=== PATIENT | female | born 1940 | race Hispanic/Latino ===

== ENCOUNTER 2018-06-19 02:58 | Observation (INO) | payer MEDICARE ==
[2018-06-19] MEDS ORDERED: ASPIRIN PO ONE (03:05)
--- NOTE | 2018-06-19 03:39 | XRay Report ---
PROCEDURE: XR CHEST 1V AP TECHNIQUE: Chest radiograph single view. HISTORY: Chest Pain COMPARISONS: None . FINDINGS: Heart: Normal. Mediastinum/Vessels: Normal. Lungs/Pleural space: Normal. Bony thorax: No acute osseous abnormality. Life support devices: None. IMPRESSION: No acute cardiopulmonary abnormality. This document is electronically signed by Benito Mcmillan MD., Jun 19 2018 03:37:10 AM ET
[2018-06-19 03:42] LABS: Basophils % (Auto) 0.6 % (0.0-1.8); Eosinophils # (Auto) 0.1 K/mm3 (0.0-0.4); Eosinophils % (Auto) 1.9 % (0.0-4.3); Hematocrit 41.3 % (30.3-42.9); Hemoglobin 13.6 gm/dl (10.1-14.3); Lymphocytes % (Auto) 16.9 % (13.4-35.0); Mean Corpuscular HGB Conc 33 % (30-34); Mean Corpuscular Volume 92 fl (79-97); Monocytes # (Auto) 0.4 K/mm3 (0.0-0.8); Monocytes % (Auto) 6.4 % (0.0-7.3); Platelet Count 180 K/mm3 (140-440); Red Blood Count 4.47 M/mm3 (3.65-5.03); Red Cell Distribution Width 14.6 % (13.2-15.2)
[2018-06-19 03:51] LABS: INR 0.95 (0.87-1.13)
[2018-06-19 03:52] LABS: Partial Thromboplastin Time 27.1 Sec. (24.2-36.6)
[2018-06-19 04:03] LABS: BUN/Creatinine Ratio 14; Blood Urea Nitrogen 14 mg/dL (7-17); Calcium 8.8 mg/dL (8.4-10.2); Hemolysis Index 12
--- NOTE | 2018-06-19 07:16 | Cat Scan Report ---
PROCEDURE: CT HEAD/BRAIN WO CON TECHNIQUE: Routine axial imaging was obtained of the brain without IV contrast. HISTORY: neuro deficits <6hrs or sx present upon awakening COMPARISONS: None FINDINGS: There is age-related atrophy. There is diminished attenuation of the periventricular white matter com patible with chronic ischemic white matter disease changes. There is no evidence of acute stroke or h emorrhage. The ventricular system is appropriate in size and is symmetric. The visualized sinuses are clear. The calvarium appears intact. IMPRESSION: Age-related volume loss with chronic ischemic white matter disease changes. No acute stroke or hemorr ann-marie.. This document is electronically signed by Ziggy Pérez MD., Jun 19 2018 05:48:43 AM ET
--- NOTE | 2018-06-19 07:17 | Emergency Department Report ---
ED General Adult HPI - General Chief complaint: Chest Pain Stated complaint: CHEST PAIN Time Seen by Provider: 06/19/18 07:13 Source: patient, family, RN notes reviewed Mode of arrival: Ambulatory Limitations: Other (the patient is a poor historian) - History of Present Illness Initial comments: This is an 78-year-old female. The patient is not known to this provider previously. The patient's primary care doctor is Dr. Daly. The history is obtained from the patient and her daughter. The patient has a history of "thyroid", hypertension, high cholesterol. The patient at this point in time does not carry a formal diagnosis of dementia. The patient may have had a history of stroke. She is not certain. The patient's daughter is not certain. Patient presents to this emergency room with complaint of chest pain and dizziness. The patient indicates the chest pain is central and left-sided. She indicates does not radiate anywhere. She describes it as a "gas" sensation The patient is not able to describe exacerbating or relieving factors. The patient denies vomiting, diaphoresis, exertional shortness of breath. The patient describes dizziness. She cannot describe what the dizziness feels like. The patient denies loss of consciousness. She denies lightheadedness. She denies vertiginous symptoms. She has chronic visual disturbance in her right eye. The patient denies new or different visual disturbance. She denies pain with chewing or swallowing food. The patient lives by herself. Her daughter comes by to visit her a few times a week. No aspirin within the past week. The patient's daughter states that the patient has endorsed shortness of breath, and sweating. The patient's daughter states that the patient has been forgetful. The patient's daughter denies DVT, pulmonary embolus risk factors. The patient's daughter's concern that the patient may have had a "stroke." She thinks that the patient may have had a stroke in the distant past, but she is not certain. As far as the daughter is aware, no MRI confirmed strokes have been identified. 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 Hyperthyroid - Surgical History Past Surgical History?: Yes Additional Surgical History: right ear - Social History Smoking Status: Never Smoker Substance Use Type: None ED Physical Exam - General Limitations: Other (patient is a poor historian.) General appearance: alert (the patient is alert to name and location. She does not know the year.), in no apparent distress - Head Head exam: Present: atraumatic, normocephalic - Eye Eye exam: Present: normal appearance, EOMI, other (visual acuity intact to finger counting, color perception, reading at a close distance). Absent: nystagmus - ENT ENT exam: Present: normal exam, normal orophraynx, mucous membranes moist, melissa l external ear exam - Neck Neck exam: Present: normal inspection, full ROM. Absent: tenderness, meningismus - Respiratory Respiratory exam: Present: normal lung sounds bilaterally. Absent: respiratory distress - Cardiovascular Cardiovascular Exam: Present: normal rhythm, bradycardia, normal heart sounds. Absent: tachycardia, irregular rhythm, systolic murmur, diastolic murmur, rubs, gallop - GI/Abdominal GI/Abdominal exam: Present: soft. Absent: distended, tenderness, guarding, rebound, rigid, pulsatile mass - Extremities Exam Extremities exam: Present: normal inspection, full ROM, other (2+ pulses noted in the bilateral upper, lower extremities. Compartments soft. No long bony tenderness. The pelvis is stable.). Absent: pedal edema, joint swelling, calf tenderness - Back Exam Back exam: Present: normal inspection, full ROM. Absent: tenderness, CVA tenderness (R), paraspinal tenderness, vertebral tenderness - Neurological Exam Neurological exam: Present: alert (alert to name and location. There is no pass pointing. There is no pronator drift. There is normal [id number].), abnormal gait (the patient walks with a broad-based unsteady gait), other (Extraocular movements intact. Tongue midline. No facial droop. Facial sensation intact to light touch in the V1, V2, V3 distribution bilaterally. 5 and 5 strength in 4 extremities.. Sensation is intact to light touch in 4 extremities.). Absent: motor sensory deficit - Psychiatric Psychiatric exam: Present: anxious - Skin Skin exam: Present: warm, dry, intact, normal color. Absent: rash ED Course Vital Signs 06/19/18 06/19/18 06/19/18 03:01 03:33 03:41 Temperature 97.5 F L Pulse Rate 56 L Respiratory 18 Rate Blood Pressure 188/81 162/109 Blood Pressure [Right] O2 Sat by Pulse 99 100 99 Oximetry 06/19/18 06/19/18 06/19/18 03:51 04:19 04:21 Temperature Pulse Rate 59 L Respiratory 14 Rate Blood Pressure 179/75 170/71 Blood Pressure [Right] O2 Sat by Pulse 96 91 97 Oximetry 06/19/18 06/19/18 06/19/18 04:31 04:41 04:51 Temperature Pulse Rate Respiratory Rate Blood Pressure 136/73 136/73 179/75 Blood Pressure [Right] O2 Sat by Pulse 100 98 94 Oximetry 06/19/18 06/19/18 06/19/18 05:01 05:11 05:21 Temperature Pulse Rate Respiratory Rate Blood Pressure 179/75 157/62 136/73 Blood Pressure [Right] O2 Sat by Pulse 99 99 99 Oximetry 06/19/18 06/19/18 06/19/18 05:31 05:41 05:51 Temperature Pulse Rate Respiratory Rate Blood Pressure 136/73 136/73 136/73 Blood Pressure [Right] O2 Sat by Pulse 99 98 100 Oximetry 06/19/18 06/19/18 06/19/18 06:01 06:11 07:01 Temperature Pulse Rate Respiratory Rate Blood Pressure 136/73 162/60 173/77 Blood Pressure [Right] O2 Sat by Pulse 97 98 Oximetry 06/19/18 06/19/18 06/19/18 07:15 07:21 07:31 Temperature Pulse Rate 52 L 54 L Respiratory 18 17 Rate Blood Pressure 173/77 173/77 173/77 Blood Pressure [Right] O2 Sat by Pulse 99 99 96 Oximetry 06/19/18 06/19/18 06/19/18 07:41 07:50 08:01 Temperature Pulse Rate 62 71 53 L Respiratory 18 16 16 Rate Blood Pressure 162/60 173/77 173/77 Blood Pressure [Right] O2 Sat by Pulse 99 93 99 Oximetry 06/19/18 06/19/18 06/19/18 08:11 08:21 08:30 Temperature Pulse Rate 48 L 47 L 57 L Respiratory 15 10 L 17 Rate Blood Pressure 173/77 173/77 Blood Pressure [Right] O2 Sat by Pulse 99 99 99 Oximetry 06/19/18 06/19/18 06/19/18 08:41 08:51 09:01 Temperature Pulse Rate Respiratory Rate Blood Pressure Blood Pressure [Right] O2 Sat by Pulse 92 98 97 Oximetry 06/19/18 06/19/18 06/19/18 09:11 09:21 09:24 Temperature 98.2 F Pulse Rate 57 L 67 60 Respiratory 15 22 16 Rate Blood Pressure Blood Pressure 150/90 [Right] O2 Sat by Pulse 89 99 100 Oximetry 06/19/18 06/19/18 06/19/18 09:31 09:41 09:51 Temperature Pulse Rate 76 Respiratory 22 Rate Blood Pressure 150/112 150/112 150/112 Blood Pressure [Right] O2 Sat by Pulse 97 91 99 Oximetry - Reevaluation(s) Reevaluation #1: 06/19/18 08:31 Differential diagnosis, including not limited to: GERD, gastritis, hiatal hernia, acute coronary syndrome, pulmonary embolus, dementia, migraine headache, tension headache, cluster headache, electrolyte derangement, urinary tract infection Assessment and plan: 78-year-old female, likely with undiagnosed dementia, with inconsistent history of headache, dizziness and chest pain. Objectively s peaking, troponin negative 1, not tachycardic, not hypoxic, no pulmonary embolus or DVT risk factors, walks with a broad-based gait, likely deconditioning and dementia. Given her advanced age, vascular risk factors, patient is moderate risk by the heart score, and therefore, urgent/expedient cardiac risk stratification is typically recommended. Patient endorses shellfish intolerance, but as far as she or the family knows, no true contrast allergy to intravenous contrast. We will obtain a CT scan of her chest. Noncontrast CT scan of the brain was negative. The patient has a nonfocal neuro logic examination. I suspect undiagnosed dementia. The patient has an NIH score of 1, symptoms present for greater than 24 hours, therefore not a TPA candidate, therefore a candidate for emergent endovascular imaging. We'll replete her potassium. I did have an extensive discussion with the patient's daughter. The risks of hospitalization, including DVT, delirium, slip and fall, hospital-acquired diarrhea or reviewed with the daughter, who verbalized understanding, and gave verbal permission for hospitalization. The Hospital physician, Dr. Martino will admit the patient to the medical service. Reevaluation #2: 06/19/18 08:38 There is no temporal tenderness. There is no jaw claudication. No new visual deficits. Temporal arteritis unlikely. Intracranial CT essentially unremarkable. No neck pain or neck stiffness. No endorsement of sudden or thunderclap headache. Reevaluation #3: 06/19/18 15:40 CT scan of the chest is negative for acute disease ED Medical Decision Making - Lab Data Result diagrams: 06/19/18 03:17 06/19/18 03:17 Vital Signs 06/19/18 03:01 Temperature 97.5 F L Pulse Rate 53 L Respiratory 18 Rate Blood Pressure 188/81 O2 Sat by Pulse 99 Oximetry Lab Results 06/19/18 06/19/18 06/19/18 Range/Units 03:17 03:17 03:20 WBC 5.9 (4.5-11.0) K/mm3 RBC 4.47 (3.65-5.03) M/mm3 Hgb 13.6 (10.1-14.3) gm/dl Hct 41.3 (30.3-42.9) % MCV 92 (79-97) fl MCH 30 (28-32) pg MCHC 33 (30-34) % RDW 14.6 (13.2-15.2) % Plt Count 180 (140-440) K/mm3 Lymph % (Auto) 16.9 (13.4-35.0) % Moca % (Auto) 6.4 (0.0-7.3) % Eos % (Auto) 1.9 (0.0-4.3) % Baso % (Auto) 0.6 (0.0-1.8) % Lymph # 1.0 L (1.2-5.4) K/mm3 Moca # 0.4 (0.0-0.8) K/mm3 Eos # 0.1 (0.0-0.4) K/mm3 Baso # 0.0 (0.0-0.1) K/mm3 Seg Neutrophils % 74.2 H (40.0-70.0) % Seg Neutrophils # 4.4 (1.8-7.7) K/mm3 PT 13.3 (12.2-14.9) Sec. INR 0.95 (0.87-1.13) APTT 27.1 (24.2-36.6) Sec. Thrombin Time (15.1-19.6) Sec. D-Dimer (0-234) ng/mlDDU Sodium 140 (137-145) mmol/L Potassium 3.4 L (3.6-5.0) mmol/L Chloride 102.3 (98-107) mmol/L Carbon Dioxide 23 (22-30) mmol/L Anion Gap 18 mmol/L BUN 14 (7-17) mg/dL Creatinine 1.0 (0.7-1.2) mg/dL Estimated GFR 53 ml/min BUN/Creatinine Ratio 14 % Glucose 101 H (65-100) mg/dL POC Glucose (70-105) Calcium 8.8 (8.4-10.2) mg/dL Troponin T < 0.010 (0.00-0.029) ng/mL Urine Color (Yellow) Urine Turbidity (Clear) Urine pH (5.0-7.0) Ur Specific [place] (1.003-1.030) Urine Protein (Negative) mg/dL Urine Glucose (UA) (Negative) mg/dL Urine Ketones (Negative) mg/dL Urine Blood (Negative) Urine Nitrite (Negative) Urine Bilirubin (Negative) Urine Urobilinogen (<2.0) mg/dL Ur Leukocyte Esterase (Negative) Urine WBC (Auto) (0.0-6.0) /HPF Urine RBC (Auto) (0.0-6.0) /HPF Urine Bacteria (Auto) (Negative) /HPF 06/19/18 06/19/18 06/19/18 Range/Units 03:20 04:34 07:10 WBC (4.5-11.0) K/mm3 RBC (3.65-5.03) M/mm3 Hgb (10.1-14.3) gm/dl Hct (30.3-42.9) % MCV (79-97) fl MCH (28-32) pg MCHC (30-34) % RDW (13.2-15.2) % Plt Count (140-440) K/mm3 Lymph % (Auto) (13.4-35.0) % Moca % (Auto) (0.0-7.3) % Eos % (Auto) (0.0-4.3) % Baso % (Auto) (0.0-1.8) % Lymph # (1.2-5.4) K/mm3 Moca # (0.0-0.8) K/mm3 Eos # (0.0-0.4) K/mm3 Baso # (0.0-0.1) K/mm3 Seg Neutrophils % (40.0-70.0) % Seg Neutrophils # (1.8-7.7) K/mm3 PT (12.2-14.9) Sec. INR (0.87-1.13) APTT (24.2-36.6) Sec. Thrombin Time 15.9 (15.1-19.6) Sec. D-Dimer (0-234) ng/mlDDU Sodium (137-145) mmol/L Potassium (3.6-5.0) mmol/L Chloride (98-107) mmol/L Carbon Dioxide (22-30) mmol/L Anion Gap mmol/L BUN (7-17) mg/dL Creatinine (0.7-1.2) mg/dL Estimated GFR ml/min BUN/Creatinine Ratio % Glucose (65-100) mg/dL POC Glucose 89 (70-105) Calcium (8.4-10.2) mg/dL Troponin T (0.00-0.029) ng/mL Urine Color Straw (Yellow) Urine Turbidity Clear (Clear) Urine pH 7.0 (5.0-7.0) Ur Specific [place] 1.005 (1.003-1.030) Urine Protein <15 mg/dl (Negative) mg/dL Urine Glucose (UA) Neg (Negative) mg/dL Urine Ketones Neg (Negative) mg/dL Urine Blood Sm (Negative) Urine Nitrite Neg (Negative) Urine Bilirubin Neg (Negative) Urine Urobilinogen < 2.0 (<2.0) mg/dL Ur Leukocyte Esterase Neg (Negative) Urine WBC (Auto) 2.0 (0.0-6.0) /HPF Urine RBC (Auto) 6.0 (0.0-6.0) /HPF Urine Bacteria (Auto) 1+ (Negative) /HPF 06/19/18 Range/Units 07:20 WBC (4.5-11.0) K/mm3 RBC (3.65-5.03) M/mm3 Hgb (10.1-14.3) gm/dl Hct (30.3-42.9) % MCV (79-97) fl MCH (28-32) pg MCHC (30-34) % RDW (13.2-15.2) % Plt Count (140-440) K/mm3 Lymph % (Auto) (13.4-35.0) % Moca % (Auto) (0.0-7.3) % Eos % (Auto) (0.0-4.3) % Baso % (Auto) (0.0-1.8) % Lymph # (1.2-5.4) K/mm3 Moca # (0.0-0.8) K/mm3 Eos # (0.0-0.4) K/mm3 Baso # (0.0-0.1) K/mm3 Seg Neutrophils % (40.0-70.0) % Seg Neutrophils # (1.8-7.7) K/mm3 PT (12.2-14.9) Sec. INR (0.87-1.13) APTT (24.2-36.6) Sec. Thrombin Time (15.1-19.6) Sec. D-Dimer 527.74 H (0-234) ng/mlDDU Sodium (137-145) mmol/L Potassium (3.6-5.0) mmol/L Chloride (98-107) mmol/L Carbon Dioxide (22-30) mmol/L Anion Gap mmol/L BUN (7-17) mg/dL Creatinine (0.7-1.2) mg/dL Estimated GFR ml/min BUN/Creatinine Ratio % Glucose (65-100) mg/dL POC Glucose (70-105) Calcium (8.4-10.2) mg/dL Troponin T (0.00-0.029) ng/mL Urine Color (Yellow) Urine Turbidity (Clear) Urine pH (5.0-7.0) Ur Specific [place] (1.003-1.030) Urine Protein (Negative) mg/dL Urine Glucose (UA) (Negative) mg/dL Urine Ketones (Negative) mg/dL Urine Blood (Negative) Urine Nitrite (Negative) Urine Bilirubin (Negative) Urine Urobilinogen (<2.0) mg/dL Ur Leukocyte Esterase (Negative) Urine WBC (Auto) (0.0-6.0) /HPF Urine RBC (Auto) (0.0-6.0) /HPF Urine Bacteria (Auto) (Negative) /HPF - EKG Data -: EKG Interpreted by Me EKG shows normal: sinus rhythm Rate: bradycardia - EKG Data When compared to previous EKG there are: previous EKG unavailable 06/19/18 08:35 This is a bradycardic rhythm, 49 bpm, normal axis, QTC prolonged, atrial con tractions, abnormal EKG, not consistent with ST elevation myocardial infarction, there is no prior for comparison. - Radiology Data Radiology results: report reviewed, image reviewed X-ray the chest is negative for acute disease. Noncontrast CT scan of the brain is negative for acute disease. Critical care attestation.: If time is entered above; I have spent that time in minutes in the direct care of this critically ill patient, excluding procedure time. ED Disposition Clinical Impression: History of chest pain, History of dizziness, History of headache Disposition: OP ADMIT IP TO THIS HOSP Is pt being admited?: Yes Does the pt Need Aspirin: Yes Condition: Fair - Assessment Assessment Interval: Baseline - Level of Consciousness 1a. Level of Consciousness: alert/keenly responsive - LOC Questions 1b. LOC Questions: answers 1 question correctly - LOC Command 1c. LOC Commands: performs tasks correctly - Best Gaze 2. Best Gaze: normal - Visual 3. Visual: no visual loss - Facial Palsy 4. Facial Palsy: normal symmetrical movement - Motor Arm 5a. Motor Arm Left: no drift 5b. Motor Arm Right: no drift - Motor Leg 6a. Motor Leg Left: no drift 6b. Motor Leg Right: no drift - Limb Ataxia 7. Limb Ataxia: absent - Sensory 8. Sensory: normal - Best Language 9. Best Language: no aphasia - Dysarthria 10. Dysarthria: normal - Extinction and Inattention 11. Extinction/Inattention: no abnormality - Scoring Total Score: 1 Stroke Severity: Minor Stroke
[2018-06-19 08:20] LABS: Bacteria,Urine 1+ /HPF (Negative); Bilirubin,Urine NEG (Negative); Blood,Urine SM (Negative); Color,Urine Straw (Yellow); Protein,Urine <15 mg/dL mg/dL (Negative); Urobilinogen,Urine < 2.0 mg/dL (<2.0)
[2018-06-19] MEDS ORDERED: SOLU-Medrol IV ONE (08:34)
[2018-06-19] MEDS ORDERED: K-DUR PO ONE ×2 (08:34→15:00)
[2018-06-19] MEDS ORDERED: BENADRYL IV ONE (08:34)
[2018-06-19] MEDS ORDERED: PEPCID IV ONE (08:34)
[2018-06-19] MEDS ORDERED: NACL 0.9% 250ML 250 ML IV ONE (08:34)
--- NOTE | 2018-06-19 10:36 | Cat Scan Report ---
CTA chest: PE protocol. History: Elevated d-dimer. Chest pain. Findings: No evidence of aortic aneurysm or pulmonary embolism. Atherosclerotic aorta. No mediastinal mass or adenopathy. No pleural or pericardial effusion. No acute consolidation or discrete nodularity. Impression: No evidence of pulmonary embolism. No acute lung changes.
[2018-06-19] MEDS ORDERED: NACL 0.9% 250ML 250 ML ONE (10:49)
--- NOTE | 2018-06-19 14:39 | History and Physical Report ---
History of Present Illness Date of examination: 06/19/18 Date of admission: 06/19/18 08:37 Chief complaint: Chest pains History of present illness: Patient is a 78 yo woman who lives home alone with a history of hypertension, dyslipidemia, thyroid disorder and stroke with right eye blindness who presents to [facility] ED with left sided, nonradiating intermittent mild to moderate gas like chest pains without aggravating or relieving factors associated with dizziness that started last night. per Chart daughter is concerned about Dementia and mother living alone. Most of the history is from daughter. The patient denies vomiting, diaphoresis, exertional shortness of breath. The patient denies loss of consciousness. She denies lightheadedness. She denies vertiginous symptoms. She has chronic visual disturbance in her right eye. The patient denies new or different visual disturbance. The patient's daughter states that the patient has shortness of breath, and sweating. The patient's daughter states that the patient has been forgetful. The patient's daughter denies DVT, pulmonary embolus risk factors. The patient's daughter's concern that the patient may h ave had a "stroke." She thinks that the patient may have had a stroke in the distant past, but she is not certain. As far as the daughter is aware, no MRI confirmed strokes have been identified. The patient's primary care doctor is Dr. Kevin Daly. PMH: as hpi PSH: She denies initially then she mentions brain surgery, eye surgery SH: She denies tob/etoh/illicit drug use, lives home alone FH: She denies any heart attacks ROS: Constitutional: denies: fever ENT: denies: throat or neck pain Respiratory: denies: cough, +shortness of breath Cardiovascular: + chest pain Endocrine: denies unexplained weight loss or gain Gastrointestinal: denies: abdominal pain, nausea Genitourinary: denies: dysuria Rectal: denies no incontinence, no bleeding, no itching, no discharge Musculoskeletal: denies swelling, myaglia, muscle weakness Skin: denies: rash Neurological: + headache Hematological/Lymphatic: denies: easy bleeding or easy bruising Allergic/Immunologic: no urticaria, no allergic rhinitis, no anaphylaxis Psych: denies sadness or hopelessness, SI/HI Medications and Allergies Allergies Allergy/AdvReac Type Severity Reaction Status Date / Time iodine Allergy Angioedema Verified 06/19/18 09:25 shellfish derived Allergy Angioedema Verified 06/19/18 09:25 Active Meds: Active Medications Pneumococcal Polyvalent Vaccine (Pneumovax 23) 0.5 ml IM .ONCE ONE Stop: 06/20/18 12:01 Exam - Physical Exam Narrative exam: Gen: thin frail, WDWN, NAD, Awake, Alert, Orientated x 2, missed year, HEENT: NCAT, EOMI, PERRL, OP Clear Neck: supple, no adenopathy, no thyromegaly, no JVD CVS/Heart: RRR, normal S1S2, pulses present bilaterally Chest/Lungs: CTA B, Symmetrical chest expansion, good air entry bilaterally GI/Abdomen: soft, NTND, good bowel sounds, no guarding or rebound /Bladder: no suprapubic tenderness, no CVA or paraspinal tenderness Extermity/Skin: no c/c/e, no obvious rash MSK: FROM x 4 Neuro: CN 2-12 grossly intact, no new focal deficits, abnormal gait Psych: calm, poor 5 minute, 3 object recall, unable to count backwards by 7 - Constitutional Vitals: Temp Pulse Resp BP Pulse Ox 97.6 F 49 L 16 164/66 98 06/19/18 12:14 06/19/18 12:14 06/19/18 12:14 06/19/18 12:14 06/19/18 12:14 Results - Labs CBC & Chem 7: 06/19/18 03:17 06/19/18 03:17 Labs: Abnormal lab results 06/19/18 06/19/18 06/19/18 Range/Units 03:17 03:17 07:20 Lymph # 1.0 L (1.2-5.4) K/mm3 Seg Neutrophils % 74.2 H (40.0-70.0) % D-Dimer 527.74 H (0-234) ng/mlDDU Potassium 3.4 L (3.6-5.0) mmol/L Glucose 101 H (65-100) mg/dL Assessment and Plan Patient is a 78 yo woman who lives home alone with a history of hypertension, dyslipidemia, thyroid disorder and stroke with right eye blindness who presents to [facility] ED with chest pains and dizziness with AMS. * CTA chest Impression: No evidence of pulmonary embolism. No acute lung changes. * CT head wo contrast IMPRESSION: Age-related volume loss with chronic ischemic white matter disease changes. No acute stroke or hemorrhage.. * pCXR IMPRESSION: No acute cardiopulmonary abnormality. -Chest pains with negative troponin x 2, appears atypical: get stress test -Dizziness and abnormal gait: get MRI brain, use stroke protocol -Thyroid disorder: check thyroid function -Acute encephalopathy vs Dementia: consult Neurology home rec not entered full code DVT/GI ppx
[2018-06-19] MEDS ORDERED: ZOFRAN IV PRN (14:50)
[2018-06-19] MEDS ORDERED: DULCOLAX PR PRN (14:50)
[2018-06-19] MEDS ORDERED: SENOKOT PO PRN (14:50)
[2018-06-19] MEDS ORDERED: TYLENOL PO PRN (14:50)
[2018-06-19] MEDS ORDERED: SODIUM CHLORIDE FLUSH SYRINGE 10 ML IV PRN (14:50)
--- NOTE | 2018-06-19 17:51 | Vascular Lab Report ---
PROCEDURE: VL CAROTID DUPLEX BILAT TECHNIQUE: Ultrasound of the bilateral carotid arteries. Reported ICA Stenosis % per the NASCET crite mike. HISTORY: stroke COMPARISONS: None FINDINGS: PLAQUE DISTRIBUTION: Mild echogenic nonshadowing plaque is present in the right proximal internal car otid artery. Moderate echogenic shadowing calcified plaque is present in the proximal left internal c arotid artery with moderate decrease in diameter. VELOCITIES: RIGHT ICA peak systolic velocity (cm/sec): 85 ICA end diastolic velocity (cm/sec): 14 CCA peak systolic velocity (cm/sec): 75 ECA peak systolic velocity (cm/sec): 63 ICA/CCA systolic velocity ratio (cm/sec): 1.13 Right vertebral: Antegrade ICA STENOSIS ESTIMATION: < 50 % LEFT ICA peak systolic velocity (cm/sec): 100 ICA end diastolic velocity (cm/sec): 14 CCA peak systolic velocity (cm/sec): 81 ECA peak systolic velocity (cm/sec): 107 ICA/CCA systolic velocity ratio (cm/sec): 1.23 Left vertebral: Antegrade ICA STENOSIS ESTIMATION: < 50 % IMPRESSION: No clinically significant areas of stenosis noted bilaterally. ICA Stenosis % per the NASCET criteria is < 50 % on the right and < 50 % on the left. This document is electronically signed by Erendira Oshea MD., Jun 19 2018 05:49:15 PM ET
--- NOTE | 2018-06-19 20:19 | Magnetic Resonance Report ---
PROCEDURE: MR BRAIN WO CON HISTORY: CVA--SLURRED SPEECH--HEADACHES FINDINGS: MRI of the brain was performed using sagittal T1, axial diffusion, axial T2, axial FLAIR, c oronal flair and axial T1-weighted images. Comparison is made to the head CT of June 19, 2018. These images demonstrate that there is a complete corpus callosum. There is no Chiari malformation. Diffusion-weighted images demonstrate no acute transcortical or acute lacunar infarct. There are mild chronic-appearing small vessel ischemic white matter changes in subcortical and perive ntricular white matter. No suspect focal brain lesion is seen. There are normal flow voids in the vertebral arteries, basilar artery and both internal carotid arter ies. The mastoid air cells and middle ears appear clear. There is no evidence of acute sinusitis. IMPRESSION: No acute transcortical or acute lacunar infarct This document is electronically signed by Horacio Parker MD., Jun 19 2018 08:17:59 PM ET
--- NOTE | 2018-06-19 20:21 | Magnetic Resonance Report ---
PROCEDURE: MR MRA/MRV HEAD WO CON HISTORY: CVA--SLURRED SPEECH--HEADACHES FINDINGS: MRA of the brain was performed using [id number] angiography. Data was reformatted into multiple injections. In the posterior circulation both vertebral arteries are patent. The right vertebral artery is small, likely a developmental basis. The basilar artery is patent. Both posterior cerebral arteries are susi ntified and appear widely patent. In the anterior circulation the internal carotid, middle cerebral and anterior cerebral arteries appe ar widely patent. No aneurysm is seen. IMPRESSION: The intracranial arterial vasculature is widely patent This document is electronically signed by Horacio Parker MD., Jun 19 2018 08:19:33 PM ET
[2018-06-19] MEDS ORDERED: ATIVAN IV ONE (22:11)
[2018-06-20 06:25] LABS: Hematocrit 42.7 % (30.3-42.9); Hemoglobin 14.1 gm/dl (10.1-14.3); Mean Corpuscular HGB Conc 33 % (30-34); Mean Corpuscular Volume 92 fl (79-97); Platelet Count 188 K/mm3 (140-440); Red Blood Count 4.65 M/mm3 (3.65-5.03); Red Cell Distribution Width 14.4 % (13.2-15.2)
[2018-06-20 06:54] LABS: Alanine Aminotransferase 14 units/L (7-56); Albumin 4.4 g/dL (3.9-5); BUN/Creatinine Ratio 16; Blood Urea Nitrogen 14 mg/dL (7-17); Calcium 9.5 mg/dL (8.4-10.2); Hemolysis Index 8
[2018-06-20] MEDS ORDERED: ASPIRIN PO SCH (10:00)
[2018-06-20] MEDS ORDERED: PEPCID PO SCH (10:00)
[2018-06-20 11:40] VITALS: BP 147/78
[2018-06-20] MEDS ORDERED: PNEUMOVAX 23 IM ONE (12:00)
[2018-06-20] MEDS ORDERED: LEXISCAN IV ONE (12:07)
--- NOTE | 2018-06-20 13:16 | Consultation ---
History of Present Illness - Reason for Consult Consult date: 06/20/18 Reason for consult: Initial Psychiatric Evaluation - Chief Complaint Chief complaint: Chest pains - History of Present Psychiatric Illness Patient is an 78 yo female who lives home alone with a history of hypertension, dyslipidemia, thyroid disorder and stroke with right eye blindness who presents to [facility] ED with chest pains and dizziness with AMS. Reason for psychiatric consult reason unknown. Today patient is anxious and irritable. Daughter is at bedside. Both daughter and patient are irritable. Hesitant to have a complete psychiatric evaluation. Patient reports that she has no PPHx. Patient endorses increase worry, sleep fluctuations, easily irritable. Patient responses to questions are inappropriate. She denies SI/HI's, A/VH's, and del usions. Patient unable to recall 0/3 (lamp, umbrella, and telephone) in 5 minutes. Per collateral, daughter states patient has been very forgetful. She states 3 years ago patient has a stroke and since then patient has been forgetful. She no longer drive and cook. She reports appropriate appetite and sleep. Per daughter patient mood is frequently sad with increase anxiety/irritability. In the past, patient has taken Klonopin but intermittently. Current Psychiatric Medications: Klonopin PRN Past Psychiatric History: No previous psychiatric diagnosis; no previous inpatient psychiatric hospitalization; no outpatient psychiatrist; no previous suicide attempts. Past Medication Trials: Patient denies. History of Drug/Alcohol Abuse: Patient denies. History of Trauma/Abuse: Patient denies sexual, physical, and mental abuse. No hx of trauma. Family History of Psychiatric Illness and Substance Abuse: Patient denies. Medications and Allergies Allergies Allergy/AdvReac Type Severity Reaction Status Date / Time iodine Allergy Angioedema Verified 06/19/18 09:25 shellfish derived Allergy Angioedema Verified 06/19/18 09:25 Home Medications Medication Instructions Recorded Confirmed Last Taken Type Levothyroxine [Synthroid] 50 mcg PO QAM 06/19/18 06/19/18 Unknown History Losartan [Cozaar] 50 mg PO QDAY 06/19/18 06/19/18 Unknown History Simvastatin [Zocor] 40 mg PO DAILY 06/19/18 06/19/18 Unknown History Active Meds: Active Medications Acetaminophen (Tylenol) 650 mg PO Q4H PRN PRN Reason: Pain, Mild (1-3) Last Admin: 06/20/18 09:15 Dose: 650 mg Documented by: Aspirin (Aspirin) 325 mg PO QDAY [facility] Last Admin: 06/20/18 09:15 Dose: 325 mg Documented by: Atorvastatin Calcium (Lipitor) 40 mg PO QHS [facility] Last Admin: 06/19/18 21:53 Dose: 40 mg Documented by: Bisacodyl (Dulcolax) 10 mg ND QDAY PRN PRN Reason: Constipation Famotidine (Pepcid) 20 mg PO BID [facility] Last Admin: 06/20/18 09:15 Dose: 20 mg Documented by: Ondansetron HCl (Zofran) 4 mg IV Q8H PRN PRN Reason: Nausea And Vomiting Senna (Senokot) 8.6 mg PO Q12H PRN PRN Reason: Laxative Effect Sodium Chloride (Sodium Chloride Flush Syringe 10 Ml) 10 ml IV PRN PRN PRN Reason: LINE FLUSH Mental Status Exam - Vital signs Last Vital Signs Temp 97.2 F L 06/20/18 08:18 Pulse 75 06/20/18 10:00 Resp 18 06/20/18 10:00 BP 147/78 06/20/18 11:18 Pulse Ox 98 06/20/18 10:00 - Exam Narrative exam: Mental Status Exam: Appearance: anxious irritable Behavior: regular eye contact, confused Speech: regular rate and tone Mood: "pretty good" Affect: congruent to mood Thought Process: confused, disorganized Thought Content: denies SI/HI's, AVH's, and delusions Motor Activity: ambulatory Cognition: A/O x 1 Insight: variable Judgment:variable Mini mental state examination: (MMSE) What is the appoximate time? 1:30 - look at clock What day if week is it? " I don't know " What is the date today? " I don't know" What is the month? " May, June" What is the year ? " I forgot already." Temporal orientation: 1 Where are we now?" I don't know" What is the place? " I don't know" In what district/county are we or what is the address here? " I don't know, [place]" In which town are we? " [place], [place]" In which state are we? " [place] Spatial Orientation: 2 Repeat the following: CAR, VASE, BRICK Registration - 3 Attention and calculation: patient unable to follow directions 100-7 0 Remote memory: unable to recall lamp, umbrella, telephone 0 Naming 2 objects: watch and pen - patient able to show provider 1 REPEAT "NO IFS AND BUTS"- unable to repeat phrase 0 Stage command: "Take this piece of paper with your right hand, fold in half, and place on the floor" - patient able to do 3 Writing a complete sentence: " can I go to with my paper" 0 Reading and obey: close your eyes 1 Copy the design shown: 0 Total : 11 Results Result Diagrams: 06/20/18 05:50 06/20/18 05:50 Abnormal lab results 06/19/18 06/20/18 06/20/18 Range/Units 13:46 05:50 05:50 WBC 11.3 H (4.5-11.0) K/mm3 Glucose 106 H (65-100) mg/dL Total Creatine Kinase 166 H (30-135) units/L All other labs normal. Assessment and Plan Assessment and plan: Impression: No PPHx. Neurocognitive Disorder. Today the patient is anxious and irritable during the assessment. The patient is no threat to self. She denies SI/HI's, A/VH Recommendation/Plan: 1. Start Aricept 5mg po QHS memory. Discussed possible GI disturbances . Daughter verbalizes understanding. 2. Will reassess in 24 hours. 3. Per patient and daughter, patient refuses medication for depression, anxiety, mood, or psychosis. Disposition: Follow-up neuropsychiatrist upon discharge. Staffed with Dr. Tiffanie Clay.
--- NOTE | 2018-06-20 15:04 | Discharge Summary ---
Providers - Providers Date of Admission: 06/19/18 08:37 Date of discharge: 06/20/18 Attending physician: DERECK ZUNIGA 06/19/18 14:50 Consult to Case Management [CONS] Routine Services Needed at Discharge: Other Notified:: case maker Comment:: SNF Consult to Dietitian/Nutrition [CONS] Routine Physician Instructions: Reason For Exam: Reason for Consult: Nutrition Recommendations Reason for Consult: Diet education Occupational Therapy Evaluate and Treat [CONS] Routine Comment: Reason For Exam: Neuro deficits Physical Therapy Evaluation and Treat [CONS] Routine Comment: Reason For Exam: Neuro deficits 06/19/18 16:46 Consult to Mental Health [CONS] Urgent Reason For Exam: psych 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 * CTA chest Impression: No evidence of pulmonary embolism. No acute lung changes. * CT head wo contrast IMPRESSION: Age-related volume loss with chronic ischemic white matter disease changes. No acute stroke or hemorrhage.. * pCXR IMPRESSION: No acute cardiopulmonary abnormality. -Chest pains, psychosomatic appears atypical: stress test negative -Dizziness and abnormal gait: MRI brain negative for acute finding, -Thyroid disorder, normal TSH -Acute encephalopathy -Dementia, new diagnosis, MMSE 11 Met with family, no placement Home rec not entered full code DVT/GI ppx Disposition: [id number] HOME [facility] Time spent for discharge: 35 minutes - Discharge Diagnoses (1) Dementia Status: Acute Qualifiers: Dementia type: Alzheimer's disease Alzheimer's disease onset: unspecified onset Dementia behavioral disturbance: with behavioral disturbance Qualified Code(s): G30.9 - Alzheimer's disease, unspecified; F02.81 - Dementia in other diseases classified elsewhere with behavioral disturbance Core Measure Documentation - Palliative Care Palliative Care/ Comfort Measures: Not Applicable - Core Measures Any of the following diagnoses?: none - VTE Discharge Requirements Deep Vein Thrombosis/Pulmonary Embolism Present on Admission: No Has pt received <5 days of overlap therapy or INR<2.0: No Anticoagulant overlap therapy prescribed at discharge: No Contraindication No Overlap Therapy order at DC: Not Indicated Exam - Physical Exam Narrative exam: Gen: thin frail, WDWN, NAD, Awake, Alert, Orientated x 2, missed year, HEENT: NCAT, EOMI, PERRL, OP Clear Neck: supple, no adenopathy, no thyromegaly, no JVD CVS/Heart: RRR, normal S1S2, pulses present bilaterally Chest/Lungs: CTA B, Symmetrical chest expansion, good air entry bilaterally GI/Abdomen: soft, NTND, good bowel sounds, no guarding or rebound /Bladder: no suprapubic tenderness, no CVA or paraspinal tenderness Extermity/Skin: no c/c/e, no obvious rash MSK: FROM x 4 Neuro: CN 2-12 grossly intact, no new focal deficits, abnormal gait Psych: calm, poor 5 minute, 3 object recall, unable to count backwards by 7 - Constitutional Vitals: Temp Pulse Resp BP Pulse Ox 97.2 F L 75 18 147/78 98 06/20/18 08:18 06/20/18 10:00 06/20/18 10:00 06/20/18 11:18 06/20/18 10:00 Plan Activity: up only with assistance, fall precautions, other (no strenous activity) Diet: low salt Additional Instructions: 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
--- NOTE | 2018-06-20 19:50 | Treadmill Report ---
INDICATION: Chest pain. ORDERING PHYSICIAN: Calin Martino MD FINDINGS: There is no scintigraphic evidence of myocardial ischemia. The left ventricle is normal in size and systolic function. There is normal wall motion. The left ventricular ejection fraction is measured at 53%. CONCLUSION: Normal myocardial perfusion scan. This is a low-risk study associated with 1-year cardiovascular event rate of less than 1%. JOB# [id number] ANTON/BEBETO
[2018-06-20] MEDS ORDERED: ARICEPT PO SCH (22:00)
== END 2018-06-20 15:46 | disposition home health service (06) ==
LOC: ED 02:58 → 4A 08:37
PROVIDERS: ADMIT Internal Medicine; ATTEND Internal Medicine
DX: R07.89 Other chest pain (principal); R42 Dizziness and giddiness; E07.9 Disorder of thyroid, unspecified; I10 Essential (primary) hypertension; E78.5 Hyperlipidemia, unspecified; E05.90 Thyrotoxicosis, unspecified without thyrotoxic crisis or storm; Z87.898 Personal history of other specified conditions; Z79.82 Long term (current) use of aspirin; Z79.899 Other long term (current) drug therapy; F03.90 Unspecified dementia, unspecified severity, without behavioral disturbance, psychotic disturbance, mood disturbance, and anxiety; Z86.73 Personal history of transient ischemic attack (TIA), and cerebral infarction without residual deficits; Z23 Encounter for immunization
CPT/HCPCS: 36415; 70450; 70544; 70551; 71045; 71275; 78452; 80048; 80053; 81001; 82550; 82962; 83735; 84443; 84484; 85025; 85027; 85379; 85610; 85670; 85730; 90732; 93005; 93010; 93017; 93880; 96374; 96375; 97166; 99284; A9270; A9502; G0009; G0378; J1200; J2060; J2785; J2930; J7050; Q9967; 90471

== ENCOUNTER 2018-11-28 11:24 | Emergency (ER) | payer MEDICARE ==
[2018-11-28 11:35] VITALS: BP 157/63
--- NOTE | 2018-11-28 11:39 | Emergency Department Report ---
Blank Doc - Documentation Documentation: 78-year-old female that presents with diffuse rash. Was sent by PCP for worse daljit rash and has taken Steroid pack. Exam shows petechial like rash. This initial assessment/diagnostic orders/clinical plan/treatment(s) is/are subject to change based on patient's health status, clinical progression and re- assessment by fellow clinical providers in the ED. Further treatment and workup at subsequent clinical providers discretion. Patient/guardians urged not to elope from the ED as their condition may be serious if not clinically assessed and managed. Initial orders include: 1- Patient sent to [facility] for further evaluation and treatment 2- labs
[2018-11-28 11:57] LABS: Basophils % (Auto) 0.6 % (0.0-1.8); Eosinophils # (Auto) 0.1 K/mm3 (0.0-0.4); Eosinophils % (Auto) 1.4 % (0.0-4.3); Hematocrit 46.4 % (30.3-42.9); Hemoglobin 15.3 gm/dl (10.1-14.3); Lymphocytes # (Auto) 1.1 K/mm3 (1.2-5.4); Lymphocytes % (Auto) 16.7 % (13.4-35.0); Mean Corpuscular HGB Conc 33 % (30-34); Mean Corpuscular Volume 90 fl (79-97); Monocytes # (Auto) 0.4 K/mm3 (0.0-0.8); Monocytes % (Auto) 6.7 % (0.0-7.3); Platelet Count 214 K/mm3 (140-440); Red Blood Count 5.17 M/mm3 (3.65-5.03); Red Cell Distribution Width 14.9 % (13.2-15.2)
[2018-11-28 12:08] LABS: INR 1.04 (0.87-1.13)
[2018-11-28 12:10] LABS: Partial Thromboplastin Time 32.3 Sec. (24.2-36.6)
[2018-11-28 12:18] LABS: BUN/Creatinine Ratio 24; Blood Urea Nitrogen 22 mg/dL (7-17); Calcium 9.2 mg/dL (8.4-10.2); Hemolysis Index 10
[2018-11-28] MEDS ORDERED: DECADRON IM ONE (12:43)
--- NOTE | 2018-11-28 12:49 | Emergency Department Report ---
HPI - General Chief Complaint: Skin Rash Time Seen by Provider: 11/28/18 11:34 - HPI HPI: 78-year-old female presents to the emergency department, sent in by her PCP Dr. Farmer, with complaint of a two-week history of a rash. Initially it started on her forearms but now it has spread to her upper abdomen, chest and is also on the legs. It is itchy but she denies any weeping or drainage. She was previously on some triamcinolone cream, Claritin and a Medrol Dosepak without any improvement. No fever. She has a past medical history of anxiety, hyperlipidemia, hypertension, hypothyroidism and has previously had shingles. Patient denies any recent travel but does say that she was working outside in the yard when the rash first began. ED Past Medical Hx - Past Medical History Previous Medical History?: Yes Hx Hypertension: Yes Hx CVA: Yes Additional medical history: heart murmur. Hyperthyroid - Surgical History Past Surgical History?: Yes Additional Surgical History: right ear - Social History Smoking Status: Never Smoker - Medications Home Medications: Home Medications Medication Instructions Recorded Confirmed Last Taken Type Levothyroxine [Synthroid] 50 mcg PO QAM 06/19/18 06/19/18 Unknown History Losartan [Cozaar] 50 mg PO QDAY 06/19/18 06/19/18 Unknown History Simvastatin [Zocor TAB] 40 mg PO DAILY 06/19/18 06/19/18 Unknown History Acetaminophen [Acetaminophen TAB] 650 mg PO Q4H PRN #15 tablet 06/20/18 Unknown Rx Aspirin [Aspirin BABY CHEW TAB] 81 mg PO QDAY #30 tab 06/20/18 Unknown Rx AtorvaSTATin [Lipitor] 40 mg PO QHS #30 tablet 06/20/18 Unknown Rx Donepezil [Aricept] 5 mg PO QHS #30 tablet 06/20/18 Unknown Rx Famotidine [Pepcid] 20 mg PO BID #30 tablet 06/20/18 Unknown Rx cephALEXin [Keflex] 500 mg PO Q8HR #21 cap 11/28/18 Unknown Rx ED Review of Systems ROS: Stated complaint: RASH Other details as noted in HPI Comment: All other systems reviewed and negative Constitutional: denies: chills, fever Musculoskeletal: denies: joint swelling Skin: rash, pruritus Neurological: denies: headache, weakness Physical Exam - Physical Exam Vital Signs: Vital Signs 11/28/18 11:31 Temperature 97.3 F L Pulse Rate 60 Respiratory 16 Rate Blood Pressure 157/63 O2 Sat by Pulse 99 Oximetry Physical Exam: GENERAL: The patient is well-developed well-nourished. HENT: Normocephalic. Atraumatic. Patient has moist mucous membranes. EYES: Extraocular motions are intact. NECK: Supple. Trachea is midline. CHEST/LUNGS: Clear to auscultation. There is no respiratory distress noted. HEART/CARDIOVASCULAR: Regular. There is no tachycardia. There is no murmur. ABDOMEN: Abdomen is soft, nontender. Patient has normal bowel sounds. There is no abdominal distention. SKIN: Patient has patchy areas of rashes to the bilateral upper extremities, upper abdomen, lower chest that appears maculopapular. There are a few areas to the bilateral forearms that have an appearance of petechiae. There is no bleeding, weeping, drainage to any of the areas of the rash. There are multiple areas that have been excoriated secondary to the patient's complaint of pruritus. NEURO: The patient is awake, alert, and cooperative. The patient has no focal neurologic deficits. Normal speech. MUSCULOSKELETAL: There is no tenderness or deformity. There is no evidence of acute injury. ED Course Vital Signs 11/28/18 11:31 Temperature 97.3 F L Pulse Rate 60 Respiratory 16 Rate Blood Pressure 157/63 O2 Sat by Pulse 99 Oximetry - Consultations Consultation #1: I spoke with the patient's primary care physician and made him aware that the patient had normal vitals including no leukocytosis, thrombocytopenia, normal electrolytes and metabolic panel. I discussed with him the plan for outpatient follow-up with dermatology. He is asked to the patient receive a Decadron shot and says that he will help assist in setting her up for a dermatology appointment. 11/28/18 12:53 ED Medical Decision Making - Lab Data Result diagrams: 11/28/18 11:44 11/28/18 11:44 - Medical Decision Making This patient was sent in by her PCP for further evaluation of a rash that has been progressing over the past 1-2 weeks despite a previous treatment of Nitrol dosepak, triamcinolone and Claritin. The rash is mostly itchy. She denies any pain, discharge, weeping, drainage. Patient has been afebrile and has stable vitals. There is no involvement of the oral mucosa, palms or soles. She had some lab work done that does not show any leukocytosis, anemia, thrombocytopenia or any significant electrolyte abnormalities. Some of the rash appears maculopapular and some of it has a petechia appearance. However the patient is awake, alert and does not appear in any acute distress. She does not appear to require admission, transfer and does not appear to have any emergent medical condition at this time. I spoke with the patient's primary care physician who is going to assist in setting her up for close dermatology follow-up. She was given a dose of Decadron and has been placed on some antibiotics. She will return to the emergency Department with any worsening of her symptoms or any acute distress. Critical Care Time: No Critical care attestation.: If time is entered above; I have spent that time in minutes in the direct care of this critically ill patient, excluding procedure time. ED Disposition Clinical Impression: Dermatitis, Rash and nonspecific skin eruption Disposition: TO HOME OR SELFCARE Is pt being admited?: No Condition: Stable Instructions: Acute Rash (ED) Additional Instructions: Please follow-up with a medical doctor nuclear medicine in the next few days. Please contact your primary care physician, Dr. Farmer, who may be able to give you a referral or set you up for an appointment with a medical doctor nuclear medicine. Return to the emergency Department with any worsening of your symptoms or any acute distress. Prescriptions: cephALEXin [Keflex] 500 mg PO Q8HR #21 cap Referrals: [facility] [Provider Group] - 2-3 Days LINDA CLARK MD [Staff Physician] - 2-3 Days RIK RYAN MD [Staff Physician] - 2-3 Days Time of Disposition: 12:53
== END 2018-11-28 13:40 | disposition home or self-care (01) ==
LOC: ED 11:24
DX: L30.9 Dermatitis, unspecified (principal); I10 Essential (primary) hypertension; Z91.013 Allergy to seafood; Z91.041 Radiographic dye allergy status; Z79.82 Long term (current) use of aspirin; Z79.899 Other long term (current) drug therapy
CPT/HCPCS: 36415; 80048; 85025; 85610; 85730; 96372; 99283; J1100